=== PATIENT | male | born 1955 | race Caucasian/White ===

== ENCOUNTER 2024-12-29 16:31 | Emergency (ER) | payer MEDICARE ==
[~2024-12-29] VITALS: Ht 188 cm; Wt 56.7 kg
--- NOTE | 2024-12-29 16:48 | NUR ---
[facility]
--- NOTE | 2024-12-29 16:55 | ERN ---
ED Note History of Present Illness Stated Complaint: PSYCHIATRIC EVALUATION Chief Complaint: Psych Evaluation Time Seen by MD: 16:33 Dictation: Patient is a 69-year-old male coming in EMS that has complaint of striking out at staff members at a Alzheimer's unit prior to arrival today. The staff wanted him to be re-evaluated. He is not able to answer any questions other than his name. Unable to provide any history. Past Medical History Past Medical History: Arthritis, Dementia, Depression, Hypertension Surgical History: Appendectomy RN Note Reviewed/Agreed w/PFSH: Yes Review of System Dictation CONSTITUTIONAL: Negative except for HPI HEAD/FACE: Negative except for HPI EENT: Negative except for HPI RESPIRATORY: Negative except for HPI GASTROINTESTINAL/ABDOMINAL: Negative except for HPI GENITOURINARY: Negative except for HPI MUSCULOSKELETAL: Negative except for HPI INTEGUMENTARY: Negative except for HPI NEUROLOGICAL/PSYCH: Negative except for HPI aggressive behavior HEMATOLOGIC/LYMPHATIC: Negative except for HPI All Systems Negative, Except as noted above. 13 point review of systems assessed and all negative except for above. Initial Vital Sign VS Vital Signs Date Time Temp Pulse Resp B/P (MAP) Pulse Ox O2 Delivery O2 Flow Rate FiO2 12/29/24 16:36 77 18 148/54 97 Room Air Physical Exam Dictation Vital Signs reviewed General Appearance: Alert, oriented x one, PATIENT STATES HE WAS ON A SHIP AND THEY WERE LOADING CARGO AND THAT HE GOT INTO IT WITH THE ANOTHER OF THE SHIFT MEETS. Head and Face: non-traumatic. Eyes: PERRL, pink conjunctivas, eyelid no trauma, anterior chamber with arcus senilis. Ears: Pinnas intact and no signs of trauma or erythema ear canals clear and no discharge TM no erythema Nose: No discharge, no bleeding. Oropharynx: Mouth normal, tongue pink, pharynx clear,no erythema, tonsils no exudates, no abscesses noted, mucous membrane moist Neck: Supple, non-tender, no thyromegaly, no masses, no JVD, no bruits Breast:Deferred Chest:No tenderness, no crepitus, no paradoxical movement, no retractions Lungs:Clear, well-ventilated, symmetric, no rales, no wheezing, no rhonchi, no stridor, good breath sounds bilaterally Heart: Regular rate, regular rhythm, no murmur, no gallops Vascular: no peripheral edema, Abdomen: Soft, positive bowel sounds, nondistended, no guarding, nontender, no rebound, no masses no hepatomegaly, no splenomegaly, no Parham's sign, no hernias. Rectal: Deferred Genital: Deferred Neurological: Normal speech, motor function intact, sensory function intact Musculoskeletal: Neck nontender, full range of motion, back nontender, full range of motion, Extremities: nontender, full range of motion Skin: Color pink, dry, no turgor, no rash, no lacerations, no abrasions, no contusions. Lymphatic: Deferred Results (Laboratory/Radiology) Laboratory/Radiology Laboratory Tests Test 12/29/24 16:57 12/29/24 18:24 White Blood Count 6.5 K/uL (4.8-10.8) Red Blood Count 4.09 MIL/uL (4.50-6.20) L Hemoglobin 13.1 g/dL (14.0-18.0) L Hematocrit 40.0 % (42-54) L Mean Corpuscular Volume 97.8 fL (79-99) Mean Corpuscular Hemoglobin 32.0 pg (27.0-33.0) Mean Corpuscular Hemoglobin Concent 32.8 g/dL (32.0-36.0) Red Cell Distribution Width 11.9 % (11.0-15.5) Platelet Count 171 K/uL (130-400) Mean Platelet Volume 10.8 fL (7.5-10.5) H Immature Granulocyte % (Auto) 0.5 % (0-1) Neutrophils (%) (Auto) 62.5 % (40.0-77.0) Lymphocytes (%) (Auto) 26.9 % (21.0-51.0) Monocytes (%) (Auto) 7.8 % (3.0-13.0) Eosinophils (%) (Auto) 1.8 % (0.0-8.0) Basophils (%) (Auto) 0.5 % (0.0-5.0) Neutrophils # (Auto) 4.1 K/uL (1.8-7.7) Lymphocytes # (Auto) 1.8 K/uL (1.0-4.8) Monocytes # (Auto) 0.5 K/uL (0.1-1.0) Eosinophils # (Auto) 0.12 K/uL (0.00-0.70) Basophils # (Auto) 0.03 K/uL (0.00-0.20) Absolute Immature Granulocyte (auto 0.03 K/uL (0-1) Nucleated Red Blood Cells 0.0 % (0.0-0.19) Sodium Level 147 mmol/L (136-145) H Potassium Level 3.8 mmol/L (3.5-5.1) Chloride Level 109 mmol/L (101-111) Carbon Dioxide Level 31 mmol/L (21-32) Blood Urea Nitrogen 21 mg/dL (7-18) H Creatinine 1.0 mg/dL (0.5-1.3) Glomerular Filtration Rate Calc 81 mL/min (>90) Random Glucose 110 mg/dL (70-105) H Total Calcium 9.1 mg/dL (8.5-10.1) Total Creatine Kinase 119 U/L (21-232) Salicylates Level < 2.8 mg/dL (2.8-20.0) L Acetaminophen Level < 1 mcg/mL (10-29) L Serum Alcohol < 3 mg/dL (0-10) Urine Color LIGHT-YELLOW (YELLOW) Urine Appearance CLEAR (CLEAR) Urine pH 5.5 (5.0-8.0) Urine Specific [place] 1.027 (1.001-1.031) Urine Protein NEGATIVE mg/dL (NEGATIVE) Urine Glucose (UA) NEGATIVE mg/dL (NEGATIVE) Urine Ketones 10 mg/dL (NEGATIVE) H Urine Occult Blood NEGATIVE (NEGATIVE) Urine Nitrate NEGATIVE (NEGATIVE) Urine Bilirubin NEGATIVE mg/dL (NEGATIVE) Urine Urobilinogen 0.2 mg/dL (0.2-1.0) Urine Leukocyte Esterase NEGATIVE Amanda/uL Urine RBC 0-1 /HPF (0-1) Urine WBC 2-5 /HPF (0-1) H Urine Bacteria None /HPF (None Seen) Urine Hyaline Casts 0-1 /LPF (0-1 /LPF) Urine Opiates Screen NEGATIVE (NEGATIVE) Urine Barbiturates Screen NEGATIVE (NEGATIVE) Urine Phencyclidine Screen NEGATIVE (NEGATIVE) Urine Amphetamines Screen NEGATIVE (NEGATIVE) Urine Benzodiazepines Screen NEGATIVE (NEGATIVE) Urine Cocaine Screen NEGATIVE (NEGATIVE) Urine Marijuana (THC) Screen NEGATIVE (NEGATIVE) Labs Reviewed?: Yes ED Course ED Course Orders Procedure Category Date Status Time Drug Screen Urine LAB 12/29/24 Complete 16:44 Cbc With Differential LAB 12/29/24 Complete 16:44 Alcohol, Blood LAB 12/29/24 Complete 16:44 Salicylate LAB 12/29/24 Complete 16:44 Acetaminophen LAB 12/29/24 Complete 16:44 Urinalysis Profile LAB 12/29/24 Complete 16:44 12 Lead Ekg Tracing- EKG 12/29/24 Complete Technical 16:44 Creatine Kinase, Total LAB 12/29/24 Complete 16:44 Basic Metabolic Panel LAB 12/29/24 Complete 16:44 Vital Signs Date Time Temp Pulse Resp B/P (MAP) Pulse Ox O2 Delivery O2 Flow Rate FiO2 12/29/24 16:36 77 18 148/54 97 Room Air 1930/PATIENT REMAINS STABLE IN HIS FALLING DIRECTIONS APPROPRIATELY. NO AGGRESSIVE BEHAVIOR NO SUICIDAL OR HOMICIDAL IDEATION VOICE. WE WILL BE DISCHARGED BACK MEDICALLY CLEAR Medical Decision Making MDM MDM: DIFFERENTIAL DIAGNOSIS: PSYCHOSIS/SUICIDAL IDEATION/HOMICIDAL IDEATION/AGGRESSIVE BEHAVIOR/DEMENTIA/ELECTROLYTE IMBALANCE/DEHYDRATION/UTI RATIONALE: TESTS CONSIDERED AND ORDERED SECONDARY TO SHARED DECISION MAKING INCLUDE: LABS PREVIOUS OUTSIDE RECORDS REVIEWED: OLD ER VISITS. RISK OF COMPLICATION AND/OR MORBIDITY OR MORTALITY OF PATIENT MANAGEMENT: NONE MEDICATIONS-PER MEDICATION RECONCILIATION NEED FOR HOSPITALIZATION: PATIENT DOES NOT MEET CRITERIA FOR HOSPITALIZATION. NO NEED FOR EMERGENCY MAJOR/MINOR SURGERY: NO THERE ARE NO SOCIAL CONCERNS WITH THIS PATIENT. PRESCRIPTION DRUG MANAGEMENT NONE PRESCRIPTIONS WILL INCLUDE SYMPTOMATIC CARE PATIENT'S PRIOR EXTERNAL MEDICAL RECORDS FROM OTHER ER VISITS WERE REVIEWED BY ME INDICATED. PRIOR TESTING AND RESULTS FROM PREVIOUS VISITS WERE REVIEWED. PRIOR TESTS WERE TAKEN INTO ACCOUNT WITH MEDICAL DECISION MAKING AND RESOURCE UTILIZATION, INDEPENDENT HISTORIAN/HISTORIANS WERE USED TO OBTAIN COMPLETE MEDICAL HISTORY. I INDEPENDENTLY INTERPRETED THE TEST THAT WERE PERFORMED, RESULTS WERE REVIEWED BY ME AND CONSIDERED FINDINGS ON RADIOLOGY IF ORDERED. MEDICAL MANAGEMENT AND EXAMINATION INTERPRETATION DISCUSSIONS WERE HAD BY ME WITH OTHER QUALIFIED HEALTHCARE PROFESSIONALS INDICATED FOR THE PATIENT'S CARE. DX & DISP Disposition: Discharge Departure Impression: Primary Impression: Aggressive behavior due to dementia Additional Impressions: Hypernatremia, Dehydration, Dementia Condition: Stable Additional Instructions: FOLLOW-UP WITH PRIMARY CARE PROVIDER IN 1 TO 2 DAYS. TAKE MEDICATIONS DIRECTED HERE IN THE EMERGENCY ROOM. OKAY TO CONTINUE HOME MEDICATIONS UNLESS OTHERWISE DISCUSSED DURING YOUR VISIT IN THE EMERGENCY ROOM TODAY. RETURN TO YOUR NEAREST EMERGENCY ROOM IF SYMPTOMS WORSEN OR IF THERE IS NO IMPROVEMENT. CALL 911 IF YOU NEED IMMEDIATE ASSISTANCE. TAKE TYLENOL OR MOTRIN [id number] NEEDED AND IF NO CONTRAINDICATIONS ARE PRESENT. INCREASE ORAL HYDRATION. A WOUND CULTURE OR URINE CULTURE WAS ORDERED HERE IN THE EMERGENCY ROOM DEPARTMENT PLEASE FOLLOW-UP WITH PRIMARY CARE PROVIDER AND ADVISE THEM TO GET REPEAT PORTS FROM OUR FACILITY. IF YOU HAD ANY RANJITH WRAP/SPLINTS THAT WERE APPLIED HERE, PLEASE DO NOT REMOVE THEM UNTIL YOU SEE YOUR PRIMARY CARE OR SPECIALTY. MEDICALLY CLEARED TO REAR TURNED BACK TO DEMENTIA UNIT AND RESUME ALL MEDICATIONS AND TREATMENTS. Time of Disposition: 19:30 I have reviewed the case, and I agree with, Diagnosis and Plan PORTER HENDRIX NP December 29, 2024 16:55
--- NOTE | 2024-12-29 16:56 | EKG ---
[facility] Date: 2024-12-29 Test Time: 16:52:56 Pat Name: ROSIE ALDRIDGE Department: ED Room: Gender: M Motor Tester: [facility] : 1955 Requested By: PORTER HENDRIX Order Number: [id number] Reading MD: Merary Vanegas Measurements Intervals [place] Rate: 62 P: 1 WA: 149 QRS: -7 QRSD: 104 T: 30 QT: 417 QTc: 424 Interpretive Statements Sinus rhythm No previous ECG available for comparison Electronically Signed On 12-30-2024 14:29:35 CDT by Merary Vanegas Please click the below link to view image of tracing.
--- NOTE | 2024-12-29 17:03 | NUR ---
PT CURRENTLY DENIES ANY SI/SA OR HI/JOSEPH. PT IS COOPERATIVE AT THIS TIME.
[2024-12-29 17:20] LABS: BASOPHILS # (AUTO) 0.03 K/uL (0.00-0.20); BASOPHILS % (AUTO) 0.5 % (0.0-5.0); EOSINOPHILS # (AUTO) 0.12 K/uL (0.00-0.70); EOSINOPHILS % (AUTO) 1.8 % (0.0-8.0); IMMATURE GRANULOCYTE ABSOLUTE 0.03 K/uL (0-1); LYMPHOCYTES # (AUTO) 1.8 K/uL (1.0-4.8); LYMPHOCYTES % (AUTO) 26.9 % (21.0-51.0); MEAN CORPUSCULAR HGB CONC 32.8 g/dL (32.0-36.0); MEAN CORPUSCULAR VOLUME 97.8 fL (79-99); MONOCYTES # (AUTO) 0.5 K/uL (0.1-1.0); MONOCYTES % (AUTO) 7.8 % (3.0-13.0); NEUTROPHILS # (AUTO) 4.1 K/uL (1.8-7.7); NEUTROPHILS % (AUTO) 62.5 % (40.0-77.0); PLATELET COUNT (AUTO) 171 K/uL (130-400); RED BLOOD CELL COUNT(AUTO) 4.09 MIL/uL (4.50-6.20); RED CELL DISTRIBUTION WIDTH 11.9 % (11.0-15.5); WHITE BLOOD COUNT (AUTO) 6.5 K/uL (4.8-10.8)
[2024-12-29 17:27] LABS: CARBON DIOXIDE 31 mmol/L (21-32); CHLORIDE 109 mmol/L (101-111); GLOMERULAR FILTR. RATE CALC 81 mL/min (>90); GLUCOSE,RANDOM 110 mg/dL (70-105); POTASSIUM 3.8 mmol/L (3.5-5.1); SODIUM SERUM 147 mmol/L (136-145); UREA NITROGEN, BLOOD 21 mg/dL (7-18)
[2024-12-29 17:31] LABS: CREATINE KINASE, TOTAL 119 U/L (21-232)
--- NOTE | 2024-12-29 17:31 | NUR ---
[facility]GUSTINE VILLANUEVA REQUESTED FOR PT.
[2024-12-29 17:35] LABS: ACETAMINOPHEN < 1 mcg/mL (10-29); ALCOHOL, BLOOD < 3 mg/dL (0-10); SALICYLATE < 2.8 mg/dL (2.8-20.0)
[2024-12-29 18:41] LABS: APPEARANCE,URINE CLEAR (CLEAR); BILIRUBIN,URINE NEGATIVE (NEGATIVE); COLOR,URINE LIGHT-YELLOW (YELLOW); GLUCOSE, URINE (UA) NEGATIVE (NEGATIVE); KETONES,URINE 10 mg/dL (NEGATIVE); LEUKOCYTE ESTERASE ,URINE NEGATIVE Leu/uL (NEGATIVE); NITRATE,URINE NEGATIVE (NEGATIVE); OCCULT BLOOD,URINE NEGATIVE (NEGATIVE); PH,URINE 5.5 (5.0-8.0); PROTEIN,URINE NEGATIVE (NEGATIVE); UROBILINOGEN,URINE 0.2 mg/dL (0.2-1.0)
[2024-12-29 18:42] LABS: ADD UA MICROSCOPIC YES
[2024-12-29 18:45] LABS: HYALINE CASTS, URINE 0-1 /LPF (0-1 /LPF); MUCUS,URINE RARE LPF (None Seen); RBC,URINE 0-1 /HPF (0-1)
--- NOTE | 2024-12-29 18:45 | NUR ---
PT HAS BEEN CALM AND COOPERATIVE.
--- NOTE | 2024-12-29 18:50 | NUR ---
REPORT ENDORSED TO SHELDON Dubon RN PT PROVIDED W/PM MEAL TRAY
[2024-12-29 18:53] LABS: AMPHET/METH SCREEN,URINE NEGATIVE (NEGATIVE); BARBITURATE SCREEN, URINE NEGATIVE (NEGATIVE); BENZODIAZEPINES SCREEN,URINE NEGATIVE (NEGATIVE); CANNABINOID SCREEN,URINE NEGATIVE (NEGATIVE); COCAINE SCREEN,URINE NEGATIVE (NEGATIVE); OPIATE SCREEN,URINE NEGATIVE (NEGATIVE); PHENCYCLIDINE SCREEN,URINE NEGATIVE (NEGATIVE)
--- NOTE | 2024-12-29 19:45 | NUR ---
[facility] CONTACTED FOR TRANSFER TO [place]
[2024-12-29 19:47] VITALS: BP 139/59; PULSE 72; RESP 16; TEMP 98.7; O2SAT 97
--- NOTE | 2024-12-29 20:05 | NUR ---
ATTEMPTED REPORT TO [facility], NURSE STATING SHE DOES NOT THINK THEY ARE ACCEPTING THE PATIENT BACK, WILL HAVE HER [employer] ATTENDANT CALL ME. EMS IN ER WAITING TO TRANSFER.
== END 2024-12-29 20:21 ==
LOC: EDH 16:31
DX: E86.0 Dehydration (principal); F03.911 Unspecified dementia, unspecified severity, with agitation; E87.0 Hyperosmolality and hypernatremia; I10 Essential (primary) hypertension; M19.90 Unspecified osteoarthritis, unspecified site; Z79.899 Other long term (current) drug therapy; Z90.49 Acquired absence of other specified parts of digestive tract
CPT/HCPCS: 99284; 82550; 80048; 80305; 85025; 36415; 93005; 81001; G0481

== ENCOUNTER 2025-07-07 08:06 | Emergency (ER) | payer MEDICARE ==
[~2025-07-07] VITALS: Ht 188 cm; Wt 90.7 kg
--- NOTE | 2025-07-07 08:25 | ERN ---
General Chief Complaint: Wound Check Stated Complaint: RIGHT ARM SKIN TEAR. RT HIP PAIN Time Seen by MD: 08:09 Source: patient History of Present Illness Initial Comments Patient is a 70-year-old gentleman coming in via EMS has been wound evaluated in his right elbow. Per EMS patient initially was complaining of right hip discomfort but was ambulating at scene. Per EMS patient also has a abrasion in his right elbow. Allergies: Coded Allergies: No Known Drug Intolerances (Unverified Allergy, Unknown, 07/07/25) Past Medical History Past Medical History: Arthritis, Dementia, Depression, Hypertension Past Surgical History: Appendectomy ROS Dictation CONSTITUTIONAL: No chills, no fever, no weakness, no diaphoresis, no malaise. HEAD/FACE: No signs of trauma. EENT: No eye pain, no blurred vision, no tearing, no double vision, no ear pain, no ear discharge, no nose pain, no nasal congestion, no throat pain, no throat swelling, no mouth pain. RESPIRATORY: No cough, no orthopnea, no SOB, no stridor, no wheezing. CARDIOVASCULAR: No chest pain, no edema, no palpitations, no syncope. GASTROINTESTINAL/ABDOMINAL: No abdominal pain, no constipation, no diarrhea, no nausea, no vomiting. GENITOURINARY: No abnormal discharge, no dysuria, no frequent urination, no hematuria. No complaints of pain in the genitals. MUSCULOSKELETAL: No back pain, no gout, no joint pain, no joint swelling, no muscle pain, no muscle stiffness, no neck pain. INTEGUMENTARY: No change in color, no change in hair/nails, no dryness, lesion, no lumps, no rash. NEUROLOGICAL/PSYCH: No anxiety, not depressed, no emotional problem, no headache, no numbness, no pre-existing deficit, no history of seizures, no tremors, no weakness. HEMATOLOGIC/LYMPHATIC: Not anemic, no history of blood clots, no apparent bleeding, no bruising, glands not swollen. All Systems Negative, Except as Noted. Physical Exam Physical Exam Dictation VITAL SIGNS: Reviewed. GENERAL APPEARANCE: Alert, oriented x3, no acute distress, obese. HEAD AND FACE: Non-traumatic. EYES: PERRL, pink conjunctivas, eyelid no trauma, anterior chamber clear. EARS: Pinnas intact and no signs of trauma or erythema. Ear canals clear and no discharge. TMs no erythema. NOSE: No discharge, no bleeding. OROPHARYNX: Mouth normal, teeth no caries, tongue pink. Pharynx clear, no erythema. Tonsils no exudates, no abscesses noted. Mucous membrane moist. NECK: Supple, non-tender, no thyromegaly, no masses, no JVD, no bruits. BREAST: Deferred. CHEST: No tenderness, no crepitus, no paradoxical movement, no retractions. LUNGS: Clear, well-ventilated, symmetric, no rales, no wheezing, no rhonchi, no stridor, good breath sounds bilaterally. HEART: Regular rate, regular rhythm, no murmur, no gallops. VASCULAR: No peripheral edema. ABDOMEN: Soft, positive bowel sounds, nondistended, no guarding, nontender, no rebound, no masses no hepatomegaly, no splenomegaly, no Parham's sign, no hernias. RECTAL: Deferred. GENITAL: Deferred. NEUROLOGICAL: Normal speech, gross motor function intact, gross sensory function intact. MUSCULOSKELETAL: Neck nontender, full range of motion, back nontender, full range of motion. EXTREMITIES: Nontender, full range of motion. Right hip evaluated as well as left log roll negative on bilateral lower extremities on visual inspection of the right hip no abrasions no ecchymosis noted. SKIN: Color pink, dry, no turgor, no rash, no lacerations, no abrasions, no contusions. LYMPHATICS: Deferred. Results Laboratory and Microbiology Labs Reviewed?: Yes MDM MDM: Differential diagnosis: Right elbow abrasion, right elbow skin tear, right hip strain, Rationale: Tests considered and ordered secondary to shared decision making include: Previous outside records reviewed: Old ER visits. Risk of complication and/or morbidity or mortality of patient management: None Medications-Per medication reconciliation Need for hospitalization: Patient does not meet criteria for hospitalization. Need for emergency major/minor surgery: No Patient is a 70-year-old gentleman brought in by EMS to have a right elbow abrasion evaluated. On visual inspection right elbow skin tear was seen, it was cleaned and covered with Dermabond. Right and left hip were evaluated patient was able to flex right and left lower extremities logroll was performed on bilateral lower extremities no discomfort noted. Flexion against resistance was negative. Patient will be discharged in stable condition with a diagnosis of wound check. ED Course Orders Procedure Category Date Status Time Tetanus,Diphtheria PHA 07/07/25 In Process Tox [Adult] (Diphther 08:30 Dermabond (Dermabond) PHA 07/07/25 In Process 08:30 Dermabond (Dermabond) PHA 07/07/25 Complete 08:19 Current Medications Medications (Trade) Dose Ordered Sig/Lisandro Route PRN Reason Start Time Stop Time Status Last Admin Dose Admin Octyl Cyanoacrylate (Dermabond) 1 each ONCE ONCE TP 07/07/25 08:30 07/07/25 08:31 Octyl Cyanoacrylate (Dermabond) 1 each STK-MED ONCE TP 07/07/25 08:19 07/07/25 08:19 DC Tetanus/ Diphtheria Toxoids Adsorbed (DiphthERIA-teTANUS TOXOID [ADULT]/ DECAVAC) 0.5 ml ONCE ONCE IM 07/07/25 08:30 07/07/25 08:31 Vital Signs Date Time Temp Pulse Resp B/P (MAP) Pulse Ox O2 Delivery O2 Flow Rate FiO2 07/07/25 08:09 97.7 52 12 131/56 99 Room Air 0 DX & DISP Disposition: Discharge Departure Impression: Primary Impression: Visit for wound check Additional Impressions: Elbow abrasion, Dementia Condition: Stable Additional Instructions: FOLLOW-UP WITH PRIMARY CARE PROVIDER IN 1 TO 2 DAYS. TAKE MEDICATIONS DIRECTED HERE IN THE EMERGENCY ROOM. OKAY TO CONTINUE HOME MEDICATIONS UNLESS OTHERWISE DISCUSSED DURING YOUR VISIT IN THE EMERGENCY ROOM TODAY. RETURN TO YOUR NEAREST EMERGENCY ROOM IF SYMPTOMS WORSEN OR IF THERE IS NO IMPROVEMENT. CALL 911 IF YOU NEED IMMEDIATE ASSISTANCE. TAKE TYLENOL [id number] NEEDED AND IF NO CONTRAINDICATIONS ARE PRESENT. INCREASE ORAL HYDRATION. A WOUND CULTURE OR URINE CULTURE WAS ORDERED HERE IN THE EMERGENCY ROOM DEPARTMENT PLEASE FOLLOW-UP WITH PRIMARY CARE PROVIDER AND ADVISE THEM TO GET REPORTS FROM OUR FACILITY. IF YOU HAD ANY RANJITH WRAP/SPLINTS THAT WERE APPLIED HERE, PLEASE DO NOT REMOVE THEM UNTIL YOU SEE YOUR PRIMARY CARE OR SPECIALTY. Referrals: Referrals: SAMINA NORRIS (PCP) Time of Disposition: 08:30 MICHAEL DOHERTY MD Jul 07, 2025 08:25
[2025-07-07] MEDS: OCTYL 2-CYANOACRYLATE 1 EACH TP ONE ×2 (08:29)
--- NOTE | 2025-07-07 08:31 | NUR ---
[facility] WAS CALLED AT THIS TIME
--- NOTE | 2025-07-07 08:54 | NUR ---
CALLED [facility] TO CONFIRM THEY RECIEVED PCS FORM. WAS TOLD TO FAX IT OVER AGAIN THEY DID NOT RECIEVE IT. PCS FORM WAS FAXED OVER AGAIN AT THIS TIME.
--- NOTE | 2025-07-07 11:24 | NUR ---
PER [facility] DISPATCH, SHE STATED PT IS ON THE TRANSPORT LIST. CURRENTLY ALL TRUCKS ARE OUT ON 911 CALLS.
--- NOTE | 2025-07-07 13:05 | NUR ---
[facility] ARRIVAL TIME
[2025-07-07 13:09] VITALS: BP 156/67; PULSE 60; RESP 14; TEMP 97.1; O2SAT 99
== END 2025-07-07 13:10 ==
LOC: EDH 08:06
DX: S51.011A Laceration without foreign body of right elbow, initial encounter (principal); S50.311A Abrasion of right elbow, initial encounter; M19.90 Unspecified osteoarthritis, unspecified site; M25.551 Pain in right hip; F03.90 Unspecified dementia, unspecified severity, without behavioral disturbance, psychotic disturbance, mood disturbance, and anxiety; I10 Essential (primary) hypertension; F32.A Depression, unspecified; Z90.49 Acquired absence of other specified parts of digestive tract; X58.XXXA Exposure to other specified factors, initial encounter; Y93.89 Activity, other specified; Y92.89 Other specified places as the place of occurrence of the external cause; Y99.8 Other external cause status
CPT/HCPCS: 12001; 90471; 90714; 99283